=== PATIENT | female | born 1990 | race African-American/Black ===

== ENCOUNTER 2022-11-23 15:58 | Emergency (ER) | payer MEDICAID ==
[~2022-11-23] VITALS: Ht 157.5 cm; Wt 57.0 kg
[2022-11-23 16:08] VITALS: O2SAT 99
[2022-11-23] MEDS ORDERED: IBUPROFEN 600MG TABLET PO STA (17:14)
[2022-11-23] MEDS ORDERED: IBUP-2029 MT (18:42)
[2022-11-23 18:51] VITALS: BP 114/69; PULSE 64; RESP 19; TEMP 98.3
== END 2022-11-23 18:52 | disposition home or self-care (01) ==
LOC: ER 15:58
DX: S80.02XA Contusion of left knee, initial encounter (principal); S09.90XA Unspecified injury of head, initial encounter; V99.XXXA Unspecified transport accident, initial encounter; Y93.89 Activity, other specified; Y92.89 Other specified places as the place of occurrence of the external cause; Y99.8 Other external cause status
CPT/HCPCS: 73560; 99284